=== PATIENT | female | born 1995 | race Caucasian/White ===

== ENCOUNTER 2023-01-18 15:33 | Emergency (ER) | payer OTHER ==
[~2023-01-18] VITALS: Ht 167.6 cm; Wt 65.9 kg
[2023-01-18 15:50] VITALS: TEMP 98.9
[2023-01-18] MEDS ORDERED: AMPH30CA PO (15:53)
[2023-01-18] MEDS ORDERED: SERT-162 PO (15:53)
[2023-01-18] MEDS ORDERED: BACL10TA PO (15:53)
[2023-01-18] MEDS ORDERED: CYCLOBENZAPRINE HCL 10 MG TABLET PO ONE (18:15)
[2023-01-18] MEDS ORDERED: LIDOCAINE 5% TRANSDERMAL PATCH TD ONE (18:15)
[2023-01-18] MEDS ORDERED: KETOROLAC TROMETHAMINE 30 MG/ML VIAL IM ONE (18:15)
[2023-01-18 18:26] VITALS: BP 115/80; PULSE 70; RESP 18
[2023-01-18] MEDS ORDERED: CYCL-448 PO (20:17)
[2023-01-18] MEDS ORDERED: IBUP-1492 PO (20:17)
[2023-01-18] MEDS ORDERED: LIDO700A15 TP (20:17)
== END 2023-01-18 20:11 | disposition home or self-care (01) ==
LOC: EMS 15:40
DX: M54.17 Radiculopathy, lumbosacral region (principal); F32.A Depression, unspecified; F90.9 Attention-deficit hyperactivity disorder, unspecified type; F12.90 Cannabis use, unspecified, uncomplicated
CPT/HCPCS: 99283; 72100; 96372; J1885